=== PATIENT | female | born 1955 | race Caucasian/White ===

== ENCOUNTER → 2017-08-23 | Outpatient (CLI) | payer BC | END | disposition home or self-care (01) | LOC: PETCFH 08:23 | PROVIDERS: ATTEND Internal Medicine Gastroenterology | DX: K21.9 Gastro-esophageal reflux disease without esophagitis (principal); K75.81 Nonalcoholic steatohepatitis (NASH); K31.84 Gastroparesis; K58.9 Irritable bowel syndrome, unspecified; M81.0 Age-related osteoporosis without current pathological fracture; M41.9 Scoliosis, unspecified; R94.5 Abnormal results of liver function studies; R14.0 Abdominal distension (gaseous); R53.83 Other fatigue; Z12.11 Encounter for screening for malignant neoplasm of colon | CPT/HCPCS: 78264; A9541 ==